=== PATIENT | male | born 1960 | race Caucasian/White ===

== ENCOUNTER → 2017-09-24 | Outpatient (CLI) | payer OTHER ==
[~2017-09-24] MED LIST: ALDACTONE25 MG PO; B COMPLETE1 EACH PO; BUMETANIDE 0.50.5 M1 PO; COREG CR80 MG PO; COUMADIN 5 MG TA5 M1 PO; FOLIC ACID1 MG PO; LISINOPRIL5 MG PO; PERCOCET 5-3251 EACH PO; PRADAXA150 MG PO; PROSCAR 5MG TABL5 M1 PO; SENNA S TABLET1 EACH PO; VIBRAMYCIN 100100 MG PO; VITAMIN B PO
== END ==
LOC: M.LAB 01:40
DX: Z01.812 Encounter for preprocedural laboratory examination (principal)

== ENCOUNTER 2018-07-16 07:35 | Emergency (ER) | payer OTHER ==
[~2018-07-16] VITALS: Ht 190.5 cm; Wt 140.6 kg
[2018-07-16] MEDS ORDERED: PRADAXA150 MG PO (07:47)
[2018-07-16] MEDS ORDERED: LASIX 20 MG TAB20 MG PO (07:47)
[2018-07-16] MEDS ORDERED: VITAMIN B-1100 M1 PO (07:48)
[2018-07-16 07:54] LABS: ABSOLUTE LYMPHOCYTES 1.1 thou/uL (0.8-5.3); ABSOLUTE NEUTROPHILS 6.1 thou/uL (1.6-8.1); BASOPHILS 0.4 %; EOSINOPHILS 0.5 %; HEMATOCRIT 46.1 % (42.0-52.0); HEMOGLOBIN 16.5 gm/dL (14.0-18.0); MCH 35.3 pg (26.0-34.0); MCHC 35.8 g/dL (28.0-37.0); MCV 98.6 fL (80.0-100.0); MONOCYTES 12.3 %; MPV 7.5 fl. (7.2-11.1); NUCLEATED RBCS 0 /100WBC; PLATELET COUNT* 193 thou/uL (150-400); POLYS 73.8 %; RBC 4.67 mil/uL (4.50-6.00); RDW-CV 13.4 % (10.5-14.5); WBC 8.2 thou/uL (4.0-11.0)
[2018-07-16 08:13] LABS: CALCIUM 8.9 mg/dL (8.5-10.1); CREATININE 0.8 mg/dL (0.6-1.3)
[2018-07-16 08:18] LABS: ALBUMIN 2.9 g/dL (3.4-5.0); TOTAL BILIRUBIN 2.2 mg/dL (<0.1-1.0); TOTAL PROTEIN 7.1 g/dL (6.4-8.2)
[2018-07-16 08:36] LABS: URINE BLOOD 3+ (Negative); URINE CLARITY CLEAR; URINE COLOR DARK YELLOW; URINE GLUCOSE-RANDOM NEGATIVE (Negative); URINE KETONES NEGATIVE (Negative); URINE NITRITE-REFLEX NEGATIVE (Negative); URINE PROTEIN 2+ (Negative); URINE SPECIFIC GRAVITY 1.015 (1.005-1.030)
[2018-07-16 08:37] LABS: URINE BILIRUBIN 1+ (Negative); URINE LEUKOCYTES-REFLEX 2+ (Negative)
[2018-07-16 08:40] LABS: ICTOTEST (BILI CONFIRMATORY) Negative (Negative)
[2018-07-16 08:52] LABS: URINE WBC-REFLEX >25 Many /HPF (0-5)
[2018-07-16] MEDS ORDERED: CIPROFLOXACIN500 M1 PO (08:52)
[2018-07-16 08:54] LABS: MUCUS 0-3 Light strn/LPF (None Seen)
[2018-07-16 08:56] LABS: CASTS None Seen /LPF (None Seen); CRYSTALS None Seen /LPF (None Seen); SQUAMOUS >10 Many /LPF (0-3)
[2018-07-16 09:11] VITALS: BP 131/75
== END 2018-07-16 09:12 | disposition home or self-care (01) ==
LOC: M.ERS 07:35
PROVIDERS: Family Medicine
DX: N39.0 Urinary tract infection, site not specified (principal); I10 Essential (primary) hypertension; N40.0 Benign prostatic hyperplasia without lower urinary tract symptoms

== ENCOUNTER 2020-08-08 11:31 | Emergency (ER) | payer MEDICARE ==
[~2020-08-08] VITALS: Ht 190.5 cm; Wt 147.4 kg
[~2020-08-08 11:31] MED LIST changes: +CIPROFLOXACIN500 M1 PO; +LASIX 20 MG TAB20 MG PO; +VITAMIN B-1100 M1 PO
[2020-08-08] MEDS ORDERED: OTHER (11:43)
[2020-08-08 12:09] LABS: ABSOLUTE EOSINOPHILS 0.1 thou/uL (0.0-0.7); ABSOLUTE LYMPHOCYTES 1.2 thou/uL (0.8-5.3); ABSOLUTE MONOCYTES 0.5 thou/uL (0.0-1.2); BASOPHILS 0.8 %; HEMATOCRIT 42.1 % (42.0-52.0); HEMOGLOBIN 15.1 gm/dL (14.0-18.0); LYMPHOCYTES 20.4 %; MCHC 35.9 g/dL (28.0-37.0); MCV 97.6 fL (80.0-100.0); MONOCYTES 8.4 %; MPV 7.1 fl. (7.2-11.1); NUCLEATED RBCS 0 /100WBC; PLATELET COUNT* 146 thou/uL (150-400); POLYS 69.4 %; RBC 4.31 mil/uL (4.50-6.00); RDW-CV 13.1 % (10.5-14.5); WBC 5.8 thou/uL (4.0-11.0)
[2020-08-08 12:18] LABS: CALCIUM 8.8 mg/dL (8.5-10.1); POTASSIUM 4.1 mmol/L (3.5-5.1)
[2020-08-08 12:29] LABS: ALBUMIN 3.4 g/dL (3.4-5.0); TOTAL BILIRUBIN 1.2 mg/dL (<0.1-1.0); TOTAL PROTEIN 7.3 g/dL (6.4-8.2)
[2020-08-08 12:38] LABS: URINE BILIRUBIN NEGATIVE (Negative); URINE BLOOD TRACE (Negative); URINE CLARITY CLEAR; URINE COLOR YELLOW; URINE GLUCOSE-RANDOM NEGATIVE (Negative); URINE KETONES NEGATIVE (Negative); URINE LEUKOCYTES-REFLEX NEGATIVE (Negative); URINE NITRITE-REFLEX NEGATIVE (Negative); URINE PROTEIN NEGATIVE (Negative); URINE SPECIFIC GRAVITY 1.015 (1.005-1.030); URINE UROBILINOGEN 0.2 E.U./dl (0.2-1.0)
--- NOTE | 2020-08-08 14:16 | EKG ---
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[employer] : [id number] Requested By: Leobardo Nair Order Number: [id number] MD: Glenn Glass Measurements Intervals [place] Rate: 72 P: 0 DC: 69 QRS: -88 QRSD: 127 T: 79 QT: 435 QTc: 477 Interpretive Statements Ventricular-paced rhythm No further analysis attempted due to paced rhythm Compared to ECG 05/12/2009 13:57:44 paced beats now present Electronically Signed On 08-08-2020 14:15:50 CDT by Glenn Glass [email or web address] <ELECTRONICALLY SIGNED> By: Glenn Glass MD, [facility] 08/08/20 1415 1219 1219 Glenn Glass MD, [facility] /EPI
[2020-08-08 15:24] VITALS: BP 104/64
== END 2020-08-08 15:26 | disposition home or self-care (01) ==
LOC: M.ERS 11:31
PROVIDERS: Emergency Medicine Emergency Medical Services
DX: I95.1 Orthostatic hypotension (principal); I10 Essential (primary) hypertension; Z79.899 Other long term (current) drug therapy; Z98.890 Other specified postprocedural states